=== PATIENT | female | born 1995 | race Caucasian/White ===

== ENCOUNTER 2018-09-02 20:52 | Emergency (ER) | payer MEDICAID ==
[~2018-09-02] VITALS: Ht 160 cm; Wt 77.1 kg
[2018-09-02 21:11] VITALS: Ht 160 cm; Wt 77.1 kg
[2018-09-03 00:22] VITALS: BP 128/78
== END 2018-09-03 00:23 | disposition home or self-care (01) ==
LOC: ED 20:52
DX: S13.4XXA Sprain of ligaments of cervical spine, initial encounter (principal); S63.602A Unspecified sprain of left thumb, initial encounter; S83.92XA Sprain of unspecified site of left knee, initial encounter; V43.52XA Car driver injured in collision with other type car in traffic accident, initial encounter; Y93.I9 Activity, other involving external motion; Y92.488 Other paved roadways as the place of occurrence of the external cause; Y99.8 Other external cause status
CPT/HCPCS: Q0092

== ENCOUNTER 2019-02-12 13:01 | Emergency (ER) | payer MEDICAID ==
[~2019-02-12] VITALS: Ht 160 cm; Wt 69.9 kg
[2019-02-12 13:12] VITALS: Ht 160 cm; Wt 69.9 kg
[2019-02-12 14:10] LABS: BASOPHIL % 0.3 % (0-2); PLATELET COUNT 220 x10^3mcL (130-400); RED CELL DISTRIBUTION WIDTH 13.2 % (11.5-14.5)
[2019-02-12 14:37] LABS: CALCIUM 9.1 mg/dL (8.5-10.1); CARBON DIOXIDE 30.8 mmol/L (21-32); CHLORIDE SERUM 106 mmol/L (98-107); CREATININE SERUM 0.7 mg/dL (0.6-1.0); GFR1 > 60 mL/min; GLUCOSE SERUM 106 mg/dL (74-106); SODIUM SERUM 144 mmol/L (136-145)
[2019-02-12 14:41] LABS: ALBUMIN 4.3 g/dL (3.4-5.0); ALKALINE PHOSPHATASE 58 U/L (46-116); ALT/SGPT 23 U/L (14-59); AST/SGOT 16 U/L (15-37); BILIRUBIN TOTAL 0.4 mg/dL (0.20-1.00); LIPASE 122 IU/L (73-393); TOTAL PROTEIN, SERUM 8.2 g/dL (6.4-8.2)
[2019-02-12 16:05] VITALS: BP 117/80
== END 2019-02-12 16:05 | disposition home or self-care (01) ==
LOC: ED 13:01
PROVIDERS: Emergency Medicine
DX: R10.13 Epigastric pain (principal); R11.2 Nausea with vomiting, unspecified; R19.7 Diarrhea, unspecified; K21.9 Gastro-esophageal reflux disease without esophagitis
CPT/HCPCS: J2405; J7030; Q0092

== ENCOUNTER 2019-02-19 15:25 | Emergency (ER) | payer MEDICAID ==
[~2019-02-19] VITALS: Ht 160 cm; Wt 70.3 kg
[2019-02-19 15:36] VITALS: Ht 160 cm; Wt 70.3 kg
[2019-02-19 17:01] VITALS: BP 125/69
== END 2019-02-19 17:05 | disposition home or self-care (01) ==
LOC: ED 15:25
DX: K21.9 Gastro-esophageal reflux disease without esophagitis (principal); R07.89 Other chest pain

== ENCOUNTER 2019-03-29 15:16 | Emergency (ER) | payer MEDICAID ==
[~2019-03-29] VITALS: Ht 160 cm; Wt 67.6 kg
[2019-03-29 15:21] VITALS: BP 124/81; Ht 160 cm; Wt 67.6 kg
== END 2019-03-29 16:03 | disposition home or self-care (01) ==
LOC: ED 15:16
DX: G44.209 Tension-type headache, unspecified, not intractable (principal); R53.83 Other fatigue; M79.10 Myalgia, unspecified site; M54.2 Cervicalgia; K21.9 Gastro-esophageal reflux disease without esophagitis

== ENCOUNTER 2019-04-17 21:49 | Emergency (ER) | payer MEDICAID ==
[~2019-04-17] VITALS: Ht 160 cm; Wt 67.6 kg
[2019-04-17 21:55] VITALS: Ht 160 cm; Wt 67.6 kg
[2019-04-17 22:22] LABS: BASOPHIL % 0.4 % (0-2); PLATELET COUNT 208 x10^3mcL (130-400); RED CELL DISTRIBUTION WIDTH 13.7 % (11.5-14.5)
[2019-04-17 22:34] LABS: CALCIUM 8.8 mg/dL (8.5-10.1); CARBON DIOXIDE 28.6 mmol/L (21-32); CHLORIDE SERUM 103 mmol/L (98-107); CREATININE SERUM 0.9 mg/dL (0.6-1.0); GFR1 > 60 mL/min; GLUCOSE SERUM 101 mg/dL (74-106); POTASSIUM SERUM 3.5 mmol/L (3.5-5.1); SODIUM SERUM 141 mmol/L (136-145)
[2019-04-17 22:38] LABS: ALBUMIN 4.1 g/dL (3.4-5.0); ALKALINE PHOSPHATASE 59 U/L (46-116); ALT/SGPT 30 U/L (14-59); AST/SGOT 17 U/L (15-37); BILIRUBIN TOTAL 0.4 mg/dL (0.20-1.00); LIPASE 131 IU/L (73-393)
[2019-04-17 22:47] LABS: T3 TOTAL 0.88 ng/mL
[2019-04-17 22:55] LABS: FREE T4 1.05 ng/dL (0.76-1.46); FREE THYROXINE INDEX 2.2 ug/dL (1.4-4.5); T4(THYROXINE) 6.8 ug/dL (4.7-13.3)
[2019-04-18 01:20] VITALS: BP 114/83
== END 2019-04-18 01:20 | disposition home or self-care (01) ==
LOC: ED 21:49
PROVIDERS: Emergency Medicine
DX: R10.817 Generalized abdominal tenderness (principal); R53.1 Weakness; R53.83 Other fatigue; K21.9 Gastro-esophageal reflux disease without esophagitis; R19.7 Diarrhea, unspecified; R61 Generalized hyperhidrosis
CPT/HCPCS: 84439; 87804; C9113; J7030